=== PATIENT | male | born 1995 | race Caucasian/White ===

== ENCOUNTER 2022-05-10 18:01 | Emergency (ER) | payer SELFPAY ==
--- NOTE | 2022-05-10 18:36 | NUR ---
name called no answer
--- NOTE | 2022-05-10 21:47 | NUR ---
CALLED PT NO ANSWER
--- NOTE | 2022-05-10 22:13 | NUR ---
PATIENT LEFT WITHOUT BEING SEEN BY DR. Royal. NO FURTHER CARE PROVIDED FOR PATIENT.
== END 2022-05-10 22:13 | disposition left against medical advice (07) ==
LOC: MED 18:01
DX: M79.676 Pain in unspecified toe(s) (principal); Z53.21 Procedure and treatment not carried out due to patient leaving prior to being seen by health care provider

== ENCOUNTER 2024-03-09 17:16 | Emergency (ER) | payer OTHER ==
[~2024-03-09] VITALS: Ht 180.3 cm; Wt 109.8 kg
[2024-03-09 17:31] VITALS: BP 139/83; PULSE 84; RESP 18; TEMP 98.4; O2SAT 100
[2024-03-09] MEDS ORDERED: METH-1681 PO (17:55)
[2024-03-09] MEDS ORDERED: LID5T TP (17:55)
[2024-03-09] MEDS ORDERED: IBUP-2218 PO (17:55)
[2024-03-09] MEDS: KETOROLAC 30 MG/ML VIAL IM ONE (17:59)
== END 2024-03-09 18:17 | disposition home or self-care (01) ==
LOC: MED 17:16
DX: M54.6 Pain in thoracic spine (principal); R03.0 Elevated blood-pressure reading, without diagnosis of hypertension; Z79.899 Other long term (current) drug therapy
CPT/HCPCS: 96372; 99283; J1885